=== PATIENT | male | born 1950 | race Caucasian/White ===

== ENCOUNTER 2020-10-26 16:01 | Inpatient (IN) ==
[2020-10-28] MEDS ORDERED: cloNIDine HCL 0.1 MG TABLET PO PRN (17:19)
[2020-10-28] MEDS: amLODIPine 5 MG TABLET PO SCH (17:53)
[2020-10-28] MEDS: Acetaminophen 325 MG TABLET PO SCH (17:53)
[2020-10-28] MEDS: *HR* Metformin 500 MG TABLET PO SCH (17:53)
[2020-10-28] MEDS: tiZANidine 4 MG TABLET PO PRN (21:00)
[2020-10-28] MEDS: hydrOXYzine pamoate 25 MG CAPSULE PO SCH (21:01)
[2020-10-28] MEDS: Gabapentin 400 MG CAPSULE PO SCH (21:01)
[2020-10-28] MEDS: traZODone 50 MG TABLET PO SCH (21:01)
[2020-10-29] MEDS: Acetaminophen 325 MG TABLET PO SCH ×3 (03:01→14:36)
[2020-10-29] MEDS: *HR* Enoxaparin 40 MG/0.4 ML SYRINGE SQ SCH (05:45)
[2020-10-29 05:52] LABS: Basophils # 0.1 K/mcL (0.0-0.2); Basophils % 1.1 %; Eosinophils # 0.2 K/mcL (0.0-0.6); Eosinophils % 2.7 %; Hematocrit 43.5 % (37.5-50.1); Hemoglobin 14.4 g/dL (12.9-16.9); Immature Granulocytes % 0.2 % (0-4); Lymphocytes # 1.5 K/mcL (0.6-4.6); Lymphocytes % 23.9 %; Mean Corpuscular HGB Conc 33.1 g/dL (31.6-35.5); Mean Corpuscular Hemoglobin 29.6 pg (28.0-33.3); Mean Corpuscular Volume 89.5 fL (83.0-100.0); Mean Platelet Volume 9.7 fL (9.4-12.4); Monocytes # 0.5 K/mcL (0.0-1.3); Monocytes % 7.3 %; Platelet Count 219 K/mcL (140-400); Red Blood Count 4.86 M/mcL (4.19-5.50); Red Cell Distribution Width 14.1 % (11.5-14.5); Segmented Neutrophils % 64.8 %; White Blood Count 6.2 K/mcL (4.3-11.1)
[2020-10-29 06:08] LABS: Alanine Aminotransferase 18 Units/L (7-52); Albumin 3.7 g/dL (3.5-5.7); Albumin/Globulin Ratio 1.7 (1.1-2.2); Alkaline Phosphatase 60 Units/L (34-104); Aspartate Amino Transferase 11 Units/L (13-39); BUN/Creatinine Ratio 20 (6-26); Bilirubin,Total 0.3 mg/dL (0.3-1.0); Blood Urea Nitrogen 23 mg/dL (8-23); Calcium 9.2 mg/dL (8.6-10.3); Carbon Dioxide 25 mEq/L (23-29); Chloride 107 mEq/L (98-107); Globulin 2.2 g/dL (2.4-3.5); Glucose 115 mg/dL (70-105); Magnesium 1.8 mg/dL (1.6-2.6); Osmolality,Calculated 289 (280-300); Potassium 3.9 mEq/L (3.5-5.1); Sodium 137 mEq/L (136-145); Total Protein 5.9 g/dL (6.4-8.9); eGFR For African Americans > 60 (> 60); eGFR For Non-African Americans > 60 (> 60)
[2020-10-29] MEDS: tiZANidine 4 MG TABLET PO PRN ×2 (08:13→21:20)
[2020-10-29] MEDS: *HR* SitaGLIPtin 25 MG TABLET PO SCH (08:13)
[2020-10-29] MEDS: Gabapentin 400 MG CAPSULE PO SCH ×3 (08:14→21:19)
[2020-10-29] MEDS: *HR* Metformin 500 MG TABLET PO SCH ×2 (08:14→14:37)
[2020-10-29] MEDS: Nicotine 14 MG PATCH.TD24 TD SCH (08:18)
[2020-10-29] MEDS: amLODIPine 5 MG TABLET PO SCH (14:36)
[2020-10-29] MEDS: hydrOXYzine pamoate 25 MG CAPSULE PO SCH (21:19)
[2020-10-29] MEDS: traZODone 50 MG TABLET PO SCH (21:19)
[2020-10-30] MEDS: Acetaminophen 325 MG TABLET PO SCH ×2 (01:30→09:14)
[2020-10-30] MEDS: *HR* Enoxaparin 40 MG/0.4 ML SYRINGE SQ SCH (04:40)
[2020-10-30] MEDS: Gabapentin 400 MG CAPSULE PO SCH ×3 (09:14→20:21)
[2020-10-30] MEDS: *HR* Metformin 500 MG TABLET PO SCH ×2 (09:14→16:16)
[2020-10-30] MEDS: *HR* SitaGLIPtin 25 MG TABLET PO SCH (09:15)
[2020-10-30] MEDS: Nicotine 14 MG PATCH.TD24 TD SCH (09:15)
[2020-10-30] MEDS: amLODIPine 5 MG TABLET PO SCH (16:16)
[2020-10-30] MEDS: Acetaminophen 325 MG TABLET PO PRN (20:20)
[2020-10-30] MEDS: hydrOXYzine pamoate 25 MG CAPSULE PO SCH (20:20)
[2020-10-30] MEDS: traZODone 50 MG TABLET PO SCH (20:21)
[2020-10-30] MEDS: tiZANidine 4 MG TABLET PO PRN (20:21)
[2020-10-31] MEDS: *HR* Enoxaparin 40 MG/0.4 ML SYRINGE SQ SCH (06:21)
[2020-10-31] MEDS: *HR* Metformin 500 MG TABLET PO SCH ×2 (08:21→17:01)
[2020-10-31] MEDS: Gabapentin 400 MG CAPSULE PO SCH ×3 (08:21→21:44)
[2020-10-31] MEDS: *HR* SitaGLIPtin 25 MG TABLET PO SCH (08:21)
[2020-10-31] MEDS: Nicotine 14 MG PATCH.TD24 TD SCH (08:23)
[2020-10-31] MEDS: polyethylene glycoL 3350 17 GM POWD.PACK PO PRN (08:29)
[2020-10-31] MEDS: hydrOXYzine pamoate 25 MG CAPSULE PO PRN ×2 (14:58→21:43)
[2020-10-31] MEDS: amLODIPine 5 MG TABLET PO SCH (17:01)
[2020-10-31] MEDS: tiZANidine 4 MG TABLET PO PRN (21:44)
[2020-10-31] MEDS: traZODone 50 MG TABLET PO SCH (21:44)
[2020-11-01] MEDS: Acetaminophen 325 MG TABLET PO PRN (06:14)
[2020-11-01] MEDS: *HR* Enoxaparin 40 MG/0.4 ML SYRINGE SQ SCH (06:14)
[2020-11-01] MEDS: Gabapentin 400 MG CAPSULE PO SCH ×3 (08:27→20:25)
[2020-11-01] MEDS: Nicotine 14 MG PATCH.TD24 TD SCH (08:27)
[2020-11-01] MEDS: *HR* SitaGLIPtin 25 MG TABLET PO SCH (08:27)
[2020-11-01] MEDS: *HR* Metformin 500 MG TABLET PO SCH ×2 (08:27→16:58)
[2020-11-01] MEDS: tiZANidine 4 MG TABLET PO PRN ×2 (08:42→20:25)
[2020-11-01] MEDS: amLODIPine 5 MG TABLET PO SCH (16:58)
[2020-11-01] MEDS ORDERED: Ondansetron ODT 4 MG TAB.RAPDIS SL PRN (19:56)
[2020-11-01] MEDS ORDERED: Famotidine 20 MG TABLET PO STA (19:56)
[2020-11-01] MEDS ORDERED: Mag Hydrox/Al Hydrox/Simeth 30 ML UDC PO PRN (20:01)
[2020-11-01] MEDS: traZODone 50 MG TABLET PO SCH (20:25)
[2020-11-01] MEDS: hydrOXYzine pamoate 25 MG CAPSULE PO PRN (20:25)
[2020-11-02] MEDS: Acetaminophen 325 MG TABLET PO PRN (05:40)
[2020-11-02] MEDS: *HR* Enoxaparin 40 MG/0.4 ML SYRINGE SQ SCH (05:40)
[2020-11-02] MEDS: Gabapentin 400 MG CAPSULE PO SCH ×3 (08:34→21:22)
[2020-11-02] MEDS: *HR* SitaGLIPtin 25 MG TABLET PO SCH (08:34)
[2020-11-02] MEDS: *HR* Metformin 500 MG TABLET PO SCH ×2 (08:34→16:31)
[2020-11-02] MEDS: Nicotine 14 MG PATCH.TD24 TD SCH (08:35)
[2020-11-02] MEDS: amLODIPine 5 MG TABLET PO SCH (16:31)
[2020-11-02] MEDS: hydrOXYzine pamoate 25 MG CAPSULE PO PRN (21:22)
[2020-11-02] MEDS: traZODone 50 MG TABLET PO SCH (21:23)
[2020-11-02] MEDS: tiZANidine 4 MG TABLET PO PRN (21:23)
[2020-11-03] MEDS: *HR* Enoxaparin 40 MG/0.4 ML SYRINGE SQ SCH (05:25)
[2020-11-03] MEDS: *HR* SitaGLIPtin 25 MG TABLET PO SCH (08:00)
[2020-11-03] MEDS: Gabapentin 400 MG CAPSULE PO SCH ×3 (08:00→21:33)
[2020-11-03] MEDS: *HR* Metformin 500 MG TABLET PO SCH ×2 (08:01→16:35)
[2020-11-03] MEDS: Nicotine 14 MG PATCH.TD24 TD SCH (08:01)
[2020-11-03] MEDS: amLODIPine 5 MG TABLET PO SCH (16:35)
[2020-11-03] MEDS: polyethylene glycoL 3350 17 GM POWD.PACK PO PRN (21:33)
[2020-11-03] MEDS: tiZANidine 4 MG TABLET PO PRN (21:33)
[2020-11-03] MEDS: traZODone 50 MG TABLET PO SCH (21:33)
[2020-11-03] MEDS: hydrOXYzine pamoate 25 MG CAPSULE PO PRN (21:33)
[2020-11-04] MEDS: *HR* Enoxaparin 40 MG/0.4 ML SYRINGE SQ SCH (06:07)
[2020-11-04] MEDS: Nicotine 14 MG PATCH.TD24 TD SCH (08:51)
[2020-11-04] MEDS: Gabapentin 400 MG CAPSULE PO SCH ×3 (08:52→22:39)
[2020-11-04] MEDS: *HR* Metformin 500 MG TABLET PO SCH ×2 (08:52→16:06)
[2020-11-04] MEDS: *HR* SitaGLIPtin 25 MG TABLET PO SCH (08:52)
[2020-11-04] MEDS: amLODIPine 5 MG TABLET PO SCH (16:06)
[2020-11-04] MEDS: traZODone 50 MG TABLET PO SCH (22:38)
[2020-11-04] MEDS: tiZANidine 4 MG TABLET PO PRN (22:40)
[2020-11-04] MEDS: hydrOXYzine pamoate 25 MG CAPSULE PO PRN (22:41)
[2020-11-05] MEDS: *HR* Enoxaparin 40 MG/0.4 ML SYRINGE SQ SCH (06:32)
[2020-11-05 07:32] VITALS: BP 125/85
[2020-11-05] MEDS: Gabapentin 400 MG CAPSULE PO SCH (08:03)
[2020-11-05] MEDS: *HR* Metformin 500 MG TABLET PO SCH (08:03)
[2020-11-05] MEDS: *HR* SitaGLIPtin 25 MG TABLET PO SCH (08:03)
[2020-11-05] MEDS: Nicotine 14 MG PATCH.TD24 TD SCH (08:03)
== END 2020-11-05 13:47 | disposition home health service (06) | DRG 945 ==
LOC: INPGRE 10-28 16:33
PROVIDERS: ADMIT Family Medicine; ATTEND Family Medicine

== ENCOUNTER 2020-11-20 18:41 | Inpatient (IN) ==
[2020-11-20] MEDS ORDERED: cloNIDine HCL 0.1 MG TABLET PO PRN (22:10)
[2020-11-20] MEDS ORDERED: polyethylene glycoL 3350 17 GM POWD.PACK PO PRN (22:10)
[2020-11-20] MEDS ORDERED: D5% in Water 1,000 ML IVC PRN (22:12)
[2020-11-20] MEDS ORDERED: Dextrose Gel 15 GM/37.5 ML TUBE PO PRN ×2 (22:12)
[2020-11-20] MEDS ORDERED: *HR* Dextrose 50 % in Water (Vial) 50 ML VIAL IVP PRN (22:12)
[2020-11-21] MEDS: hydrOXYzine pamoate 25 MG CAPSULE PO SCH ×2 (01:55→21:08)
[2020-11-21] MEDS: tiZANidine 4 MG TABLET PO PRN (01:55)
[2020-11-21 05:48] LABS: Basophils # 0.1 K/mcL (0.0-0.2); Basophils % 0.9 %; Eosinophils # 0.2 K/mcL (0.0-0.6); Eosinophils % 2.4 %; Hematocrit 43.2 % (37.5-50.1); Hemoglobin 14.3 g/dL (12.9-16.9); Immature Granulocytes % 0.3 % (0-4); Lymphocytes # 1.6 K/mcL (0.6-4.6); Mean Corpuscular HGB Conc 33.1 g/dL (31.6-35.5); Mean Corpuscular Hemoglobin 28.9 pg (28.0-33.3); Mean Corpuscular Volume 87.4 fL (83.0-100.0); Mean Platelet Volume 9.4 fL (9.4-12.4); Monocytes # 0.4 K/mcL (0.0-1.3); Monocytes % 5.5 %; Neutrophils # 5.6 K/mcL (1.6-8.9); Platelet Count 287 K/mcL (140-400); Red Blood Count 4.94 M/mcL (4.19-5.50); Red Cell Distribution Width 12.9 % (11.5-14.5); Segmented Neutrophils % 70.9 %; White Blood Count 7.9 K/mcL (4.3-11.1)
[2020-11-21] MEDS: *HR* Enoxaparin 40 MG/0.4 ML SYRINGE SQ SCH (06:04)
[2020-11-21 06:05] LABS: BUN/Creatinine Ratio 18 (6-26); Blood Urea Nitrogen 17 mg/dL (8-23); Carbon Dioxide 26 mEq/L (23-29); Chloride 102 mEq/L (98-107); Glucose 100 mg/dL (70-105); Osmolality,Calculated 282 (280-300); Potassium 3.8 mEq/L (3.5-5.1); Sodium 135 mEq/L (136-145); eGFR For African Americans > 60 (> 60); eGFR For Non-African Americans > 60 (> 60)
[2020-11-21] MEDS: Gabapentin 400 MG CAPSULE PO SCH ×3 (08:36→21:08)
[2020-11-21] MEDS: *HR* SitaGLIPtin 25 MG TABLET PO SCH (08:36)
[2020-11-21] MEDS: Nicotine 14 MG PATCH.TD24 TD SCH (08:37)
[2020-11-21] MEDS: Insulin LISPRO 300 UNITS/3 ML VIAL SUBQ SCH ×3 (08:41→16:54)
[2020-11-21] MEDS: hydrOXYzine pamoate 25 MG CAPSULE PO PRN (16:54)
[2020-11-21] MEDS: amLODIPine 5 MG TABLET PO SCH (16:54)
[2020-11-21] MEDS: traZODone 50 MG TABLET PO SCH (21:08)
[2020-11-22] MEDS: *HR* Enoxaparin 40 MG/0.4 ML SYRINGE SQ SCH (05:27)
[2020-11-22] MEDS: Gabapentin 400 MG CAPSULE PO SCH ×3 (09:27→20:04)
[2020-11-22] MEDS: *HR* SitaGLIPtin 25 MG TABLET PO SCH (09:27)
[2020-11-22] MEDS: Nicotine 14 MG PATCH.TD24 TD SCH (09:28)
[2020-11-22] MEDS: Insulin LISPRO 300 UNITS/3 ML VIAL SUBQ SCH ×2 (12:44→17:21)
[2020-11-22] MEDS: amLODIPine 5 MG TABLET PO SCH (17:23)
[2020-11-22] MEDS: traZODone 50 MG TABLET PO SCH (20:05)
[2020-11-22] MEDS: hydrOXYzine pamoate 25 MG CAPSULE PO SCH (20:05)
[2020-11-22] MEDS: tiZANidine 4 MG TABLET PO PRN (20:09)
[2020-11-23] MEDS: *HR* Enoxaparin 40 MG/0.4 ML SYRINGE SQ SCH (06:29)
[2020-11-23] MEDS: Insulin LISPRO 300 UNITS/3 ML VIAL SUBQ SCH ×3 (09:34→16:50)
[2020-11-23] MEDS: Nicotine 14 MG PATCH.TD24 TD SCH (09:36)
[2020-11-23] MEDS: Gabapentin 400 MG CAPSULE PO SCH ×3 (09:36→21:28)
[2020-11-23] MEDS: *HR* SitaGLIPtin 25 MG TABLET PO SCH (09:36)
[2020-11-23] MEDS: amLODIPine 5 MG TABLET PO SCH (17:12)
[2020-11-23] MEDS: hydrOXYzine pamoate 25 MG CAPSULE PO PRN (17:15)
[2020-11-23] MEDS: tiZANidine 4 MG TABLET PO PRN (21:28)
[2020-11-23] MEDS: traZODone 50 MG TABLET PO SCH (21:28)
[2020-11-23] MEDS: Acetaminophen 325 MG TABLET PO PRN (21:28)
[2020-11-23] MEDS: hydrOXYzine pamoate 25 MG CAPSULE PO SCH (21:29)
[2020-11-24] MEDS: *HR* Enoxaparin 40 MG/0.4 ML SYRINGE SQ SCH (05:11)
[2020-11-24] MEDS: Insulin LISPRO 300 UNITS/3 ML VIAL SUBQ SCH ×3 (07:55→16:20)
[2020-11-24] MEDS: Gabapentin 400 MG CAPSULE PO SCH ×3 (09:56→20:04)
[2020-11-24] MEDS: *HR* SitaGLIPtin 25 MG TABLET PO SCH (09:56)
[2020-11-24] MEDS: Nicotine 14 MG PATCH.TD24 TD SCH (09:57)
[2020-11-24] MEDS: amLODIPine 5 MG TABLET PO SCH (16:59)
[2020-11-24] MEDS: Acetaminophen 325 MG TABLET PO PRN (20:04)
[2020-11-24] MEDS: hydrOXYzine pamoate 25 MG CAPSULE PO SCH (20:04)
[2020-11-24] MEDS: hydrOXYzine pamoate 25 MG CAPSULE PO PRN (20:04)
[2020-11-24] MEDS: traZODone 50 MG TABLET PO SCH (20:05)
[2020-11-24] MEDS: tiZANidine 4 MG TABLET PO PRN (20:05)
[2020-11-25] MEDS: *HR* Enoxaparin 40 MG/0.4 ML SYRINGE SQ SCH (06:29)
[2020-11-25] MEDS: Insulin LISPRO 300 UNITS/3 ML VIAL SUBQ SCH ×3 (07:20→17:01)
[2020-11-25] MEDS: Nicotine 14 MG PATCH.TD24 TD SCH (08:51)
[2020-11-25] MEDS: *HR* SitaGLIPtin 25 MG TABLET PO SCH (08:51)
[2020-11-25] MEDS: Gabapentin 400 MG CAPSULE PO SCH ×3 (08:52→21:52)
[2020-11-25] MEDS: hydrOXYzine pamoate 25 MG CAPSULE PO PRN ×2 (15:50→21:55)
[2020-11-25] MEDS: amLODIPine 5 MG TABLET PO SCH (17:22)
[2020-11-25] MEDS: traZODone 50 MG TABLET PO SCH (21:52)
[2020-11-25] MEDS: Acetaminophen 325 MG TABLET PO PRN (21:52)
[2020-11-25] MEDS: hydrOXYzine pamoate 25 MG CAPSULE PO SCH (21:53)
[2020-11-25] MEDS: tiZANidine 4 MG TABLET PO PRN (21:55)
[2020-11-26] MEDS: *HR* Enoxaparin 40 MG/0.4 ML SYRINGE SQ SCH (04:54)
[2020-11-26 07:20] VITALS: BP 129/85
[2020-11-26] MEDS: Nicotine 14 MG PATCH.TD24 TD SCH (09:54)
[2020-11-26] MEDS: Insulin LISPRO 300 UNITS/3 ML VIAL SUBQ SCH ×2 (09:54→11:54)
[2020-11-26] MEDS: *HR* SitaGLIPtin 25 MG TABLET PO SCH (09:54)
[2020-11-26] MEDS: Gabapentin 400 MG CAPSULE PO SCH (09:54)
[2020-11-26] MEDS: hydrOXYzine pamoate 25 MG CAPSULE PO PRN (10:04)
== END 2020-11-26 16:13 | disposition home health service (06) | DRG 945 ==
LOC: INPGRE 23:30
PROVIDERS: ADMIT Family Medicine; ATTEND Family Medicine